=== PATIENT | male | born 1980 | race African-American/Black ===

== ENCOUNTER 2019-05-23 08:24 | Emergency (ER) | payer SELFPAY | END 2019-05-23 09:00 | disposition left against medical advice (07) | LOC: EMS 08:27 | DX: M54.9 Dorsalgia, unspecified (principal); Z53.21 Procedure and treatment not carried out due to patient leaving prior to being seen by health care provider ==

== ENCOUNTER 2021-07-31 10:52 | Emergency (ER) | payer MEDICAID ==
[~2021-07-31] VITALS: Ht 180.3 cm; Wt 81.8 kg
[2021-07-31 11:00] VITALS: BP 141/86
== END 2021-07-31 11:30 | disposition home or self-care (01) ==
LOC: EMS 10:54
DX: R05 Cough (principal); R51.9 Headache, unspecified; F17.210 Nicotine dependence, cigarettes, uncomplicated; Z20.822 Contact with and (suspected) exposure to COVID-19
CPT/HCPCS: 99283; U0003

== ENCOUNTER 2022-06-30 09:59 | Emergency (ER) | payer SELFPAY ==
[~2022-06-30] VITALS: Ht 180.3 cm; Wt 84.0 kg
[2022-06-30 10:40] VITALS: BP 123/77
[2022-06-30 13:37] LABS: BASOPHILS % (AUTO) 0.6 % (0.0-2.0); EOSINOPHILS % (AUTO) 1.6 % (1.0-6.0); HEMATOCRIT 40.7 % (41-53); HEMOGLOBIN 13.5 g/dL (13.5-17.5); LYMPHOCYTES # (AUTO) 1.2 K/uL (1.0-4.8); LYMPHOCYTES % (AUTO) 12.7 % (22.0-44.0); MEAN CORPUSCULAR HEMOGLOBIN 28.4 pg (26.0-34.0); MEAN CORPUSCULAR HGB CONC 33.2 G/dL (31.0-37.0); MEAN CORPUSCULAR VOLUME 86 fL (80-100); MONOCYTES # (AUTO) 0.5 K/uL (0.1-1.0); MONOCYTES % (AUTO) 5.7 % (2.0-9.0); NEUTROPHILS # (AUTO) 7.3 K/uL (1.8-7.7); NEUTROPHILS % (AUTO) 79.4 % (40.0-70.0); PLATELET COUNT (AUTO) 225 K/uL (150-450); RED BLOOD CELL COUNT(AUTO) 4.76 MIL/uL (4.50-5.90)
[2022-06-30 13:46] LABS: ANION GAP 4 mmol/L (8-16); CALCIUM, TOTAL 8.8 mg/dL (8.8-10.5); CARBON DIOXIDE 31 mmol/L (22-29); CHLORIDE 104 mmol/L (98-107); CREATININE 0.83 mg/dL (0.60-1.30); GLOMERULAR FILTR. RATE CALC > 60 mL/min (>60); GLUCOSE,RANDOM 84 mg/dL (70-110); POTASSIUM 3.9 mmol/L (3.5-5.1); SODIUM SERUM 139 mmol/L (136-145); UREA NITROGEN, BLOOD 9 mg/dL (7-18)
[2022-06-30 14:32] LABS: B-TYPE NATRIURETIC PEPTIDE < 5 pg/mL (0-100)
[2022-06-30 14:42] LABS: ALANINE AMINOTRANSFERASE 44 U/L (12-78); ALBUMIN 3.7 g/dL (3.4-5.0); ALKALINE PHOSPHATASE 64 U/L (46-116); ASPARTATE AMINOTRANSFERASE 42 U/L (15-37); BILIRUBIN,TOTAL 0.3 mg/dL (0.1-1.0); CREATINE KINASE, TOTAL ONLY 148 U/L (39-308); TOTAL PROTEIN, SERUM 7.2 g/dL (6.4-8.2)
== END 2022-06-30 14:40 | disposition left against medical advice (07) ==
LOC: EMS 09:59
DX: R07.89 Other chest pain (principal); F17.210 Nicotine dependence, cigarettes, uncomplicated
CPT/HCPCS: 80053; 82550; 83880; 84484; 85025; 99283

== ENCOUNTER 2022-07-22 10:14 | Emergency (ER) | payer SELFPAY ==
[~2022-07-22] VITALS: Ht 180.3 cm; Wt 79.5 kg
[2022-07-22 12:26] LABS: BASOPHILS % (AUTO) 0.8 % (0.0-2.0); EOSINOPHILS % (AUTO) 2.8 % (1.0-6.0); HEMATOCRIT 40.8 % (41-53); HEMOGLOBIN 13.5 g/dL (13.5-17.5); LYMPHOCYTES # (AUTO) 1.3 K/uL (1.0-4.8); LYMPHOCYTES % (AUTO) 20.4 % (22.0-44.0); MEAN CORPUSCULAR HEMOGLOBIN 28.7 pg (26.0-34.0); MEAN CORPUSCULAR HGB CONC 33.1 G/dL (31.0-37.0); MEAN CORPUSCULAR VOLUME 87 fL (80-100); MONOCYTES # (AUTO) 0.4 K/uL (0.1-1.0); MONOCYTES % (AUTO) 6.4 % (2.0-9.0); NEUTROPHILS # (AUTO) 4.3 K/uL (1.8-7.7); NEUTROPHILS % (AUTO) 69.6 % (40.0-70.0); PLATELET COUNT (AUTO) 289 K/uL (150-450); RED BLOOD CELL COUNT(AUTO) 4.72 MIL/uL (4.50-5.90); RED CELL DISTRIBUTION WIDTH 16.3 % (11.5-14.5)
[2022-07-22 12:35] LABS: ANION GAP 8 mmol/L (8-16); CALCIUM, TOTAL 9.1 mg/dL (8.8-10.5); CARBON DIOXIDE 30 mmol/L (22-29); CHLORIDE 106 mmol/L (98-107); GLUCOSE,RANDOM 95 mg/dL (70-110); POTASSIUM 3.7 mmol/L (3.5-5.1); SODIUM SERUM 144 mmol/L (136-145); UREA NITROGEN, BLOOD 11 mg/dL (7-18)
[2022-07-22 12:36] LABS: GLOMERULAR FILTR. RATE CALC > 60 mL/min (>60)
[2022-07-22] MEDS ORDERED: IBUPROFEN 600 MG TABLET PO ONE (14:00)
[2022-07-22] MEDS ORDERED: LIDOCAINE 5% TRANSDERMAL PATCH TD ONE (14:00)
[2022-07-22] MEDS ORDERED: IBUP-2070 PO (14:19)
[2022-07-22 14:51] VITALS: BP 135/70
== END 2022-07-22 14:53 | disposition home or self-care (01) ==
LOC: EMS 10:14
DX: R07.89 Other chest pain (principal); F17.210 Nicotine dependence, cigarettes, uncomplicated
CPT/HCPCS: 71046; 80048; 84484; 85025; 93005; 99285; 36415-L1; 36415-TC

== ENCOUNTER 2023-09-23 12:37 | Emergency (ER) | payer MEDICAID ==
[~2023-09-23] VITALS: Ht 180.3 cm; Wt 81.8 kg
[~2023-09-23 12:37] MED LIST: IBUP-1492 PO
[2023-09-23 13:13] VITALS: TEMP 98.6
[2023-09-23 14:03] LABS: BASOPHILS % (AUTO) 0.6 % (0.0-2.0); HEMATOCRIT 43.6 % (41-53); HEMOGLOBIN 14.4 g/dL (13.5-17.5); LYMPHOCYTES # (AUTO) 1.2 K/uL (1.0-4.8); LYMPHOCYTES % (AUTO) 25.4 % (22.0-44.0); MEAN CORPUSCULAR HEMOGLOBIN 29.8 pg (26.0-34.0); MEAN CORPUSCULAR HGB CONC 33.1 G/dL (31.0-37.0); MEAN CORPUSCULAR VOLUME 90 fL (80-100); MONOCYTES # (AUTO) 0.4 K/uL (0.1-1.0); MONOCYTES % (AUTO) 8.6 % (2.0-9.0); NEUTROPHILS % (AUTO) 62.4 % (40.0-70.0); PLATELET COUNT (AUTO) 218 K/uL (150-450); RED BLOOD CELL COUNT(AUTO) 4.84 MIL/uL (4.50-5.90); RED CELL DISTRIBUTION WIDTH 15.6 % (11.5-14.5); WHITE BLOOD COUNT (AUTO) 4.9 K/uL (4.5-11.0)
[2023-09-23 14:10] LABS: ANION GAP 11 mmol/L (8-16); CARBON DIOXIDE 30 mmol/L (22-29); CHLORIDE 104 mmol/L (98-107); CREATININE 0.88 mg/dL (0.60-1.30); GLOMERULAR FILTR. RATE CALC > 60 mL/min (>60); GLUCOSE,RANDOM 146 mg/dL (70-110); POTASSIUM 3.4 mmol/L (3.5-5.1); SODIUM SERUM 145 mmol/L (136-145); UREA NITROGEN, BLOOD 9 mg/dL (7-18)
[2023-09-23 14:17] LABS: ALANINE AMINOTRANSFERASE 45 U/L (12-78); ALBUMIN 3.8 g/dL (3.4-5.0); ALKALINE PHOSPHATASE 68 U/L (46-116); ASPARTATE AMINOTRANSFERASE 43 U/L (15-37); BILIRUBIN,TOTAL 0.2 mg/dL (0.1-1.0); LIPASE 34 U/L (16-77); TOTAL PROTEIN, SERUM 7.6 g/dL (6.4-8.2)
[2023-09-23 14:21] VITALS: BP 119/78; PULSE 98; RESP 18
[2023-09-23] MEDS ORDERED: ONDANSETRON HCL 4 MG/2 ML VIAL IVP ONE (14:30)
[2023-09-23] MEDS ORDERED: ACETAMINOPHEN 500 MG TABLET PO ONE (14:30)
[2023-09-23] MEDS ORDERED: FAMOTIDINE 20 MG/2 ML VIAL IVP ONE (14:30)
[2023-09-23] MEDS ORDERED: SODIUM CHLORIDE 0.9% 1,000 ML IV ONE (14:30)
[2023-09-23] MEDS ORDERED: KETOROLAC TROMETHAMINE 30 MG/ML VIAL IVP ONE (14:30)
[2023-09-23] MEDS ORDERED: SODIUM CHLORIDE 0.9% 0 ML ONE (16:16)
[2023-09-23] MEDS ORDERED: IOHEXOL 350 MG/ML 100 ML VIAL ONE ×2 (16:16→19:40)
== END 2023-09-23 15:33 | disposition left against medical advice (07) ==
LOC: EMS 12:39
DX: R10.33 Periumbilical pain (principal); R11.2 Nausea with vomiting, unspecified; F17.210 Nicotine dependence, cigarettes, uncomplicated
CPT/HCPCS: 99284; 96374; 96375; 96361; 80053; 83690; 85025; G0480; J3490; J1885; J2405; J7030; J7050; Q9967; 36415-L1; 36415-TC

== ENCOUNTER 2023-12-16 10:39 | Emergency (ER) | payer SELFPAY ==
[~2023-12-16] VITALS: Ht 180.3 cm; Wt 84.1 kg
[2023-12-16 10:47] VITALS: TEMP 98.2
[2023-12-16 13:37] VITALS: BP 139/72; PULSE 73; RESP 18
[2023-12-16] MEDS: KETOROLAC TROMETHAMINE 30 MG/ML VIAL IM ONE (14:23)
[2023-12-16] MEDS: LIDOCAINE 5% TRANSDERMAL PATCH TD ONE (14:23)
== END 2023-12-16 14:31 | disposition home or self-care (01) ==
LOC: EMS 10:42
DX: S39.012A Strain of muscle, fascia and tendon of lower back, initial encounter (principal); F17.210 Nicotine dependence, cigarettes, uncomplicated; X58.XXXA Exposure to other specified factors, initial encounter; Y93.89 Activity, other specified; Y92.89 Other specified places as the place of occurrence of the external cause; Y99.8 Other external cause status
CPT/HCPCS: 99283; 96372; J1885

== ENCOUNTER 2025-09-04 08:17 | Emergency (ER) | payer SELFPAY ==
[~2025-09-04] VITALS: Ht 180.3 cm; Wt 77.3 kg
[2025-09-04 08:36] VITALS: BP 134/94; PULSE 90; RESP 16; TEMP 98.2; O2SAT 98
[2025-09-04] MEDS ORDERED: METH-659 PO (09:22)
[2025-09-04] MEDS ORDERED: LIDO-57 TP (09:22)
[2025-09-04] MEDS ORDERED: PERCT PO (09:22)
[2025-09-04] MEDS ORDERED: IBUP-1492 PO (09:22)
[2025-09-04] MEDS: LIDOCAINE 5% TRANSDERMAL PATCH TD ONE (09:27)
[2025-09-04] MEDS: IBUPROFEN 600 MG TABLET PO ONE (09:27)
== END 2025-09-04 09:42 | disposition home or self-care (01) ==
LOC: EMS 08:22
DX: S39.012A Strain of muscle, fascia and tendon of lower back, initial encounter (principal); F17.210 Nicotine dependence, cigarettes, uncomplicated; F10.90 Alcohol use, unspecified, uncomplicated; Z98.890 Other specified postprocedural states; Z79.891 Long term (current) use of opiate analgesic; X58.XXXA Exposure to other specified factors, initial encounter; Y93.89 Activity, other specified; Y92.89 Other specified places as the place of occurrence of the external cause; Y99.8 Other external cause status
CPT/HCPCS: 99284; Z7502; Z7610

== ENCOUNTER 2025-10-30 07:21 | Emergency (ER) | payer SELFPAY ==
[~2025-10-30] VITALS: Ht 180.3 cm; Wt 79.5 kg
[~2025-10-30 07:21] MED LIST changes: +LIDO-57 TP; +METH-659 PO; +PERCT PO
[2025-10-30 07:24] VITALS: BP 141/86; PULSE 83; RESP 18; TEMP 98.2; O2SAT 99
[2025-10-30] MEDS: KETOROLAC TROMETHAMINE 60 MG/2 ML VIAL IM ONE (08:57)
[2025-10-30] MEDS: LIDOCAINE 5% TRANSDERMAL PATCH TD ONE (08:58)
[2025-10-30] MEDS ORDERED: METH-659 PO (09:35)
[2025-10-30] MEDS ORDERED: IBUP-1492 PO (09:35)
== END 2025-10-30 10:21 | disposition home or self-care (01) ==
LOC: EMS 07:21
DX: S39.012A Strain of muscle, fascia and tendon of lower back, initial encounter (principal); M53.3 Sacrococcygeal disorders, not elsewhere classified; F17.210 Nicotine dependence, cigarettes, uncomplicated; F10.90 Alcohol use, unspecified, uncomplicated; Z98.890 Other specified postprocedural states; Z79.899 Other long term (current) drug therapy; Z79.891 Long term (current) use of opiate analgesic; Y90.9 Presence of alcohol in blood, level not specified; X58.XXXA Exposure to other specified factors, initial encounter; Y93.89 Activity, other specified; Y92.89 Other specified places as the place of occurrence of the external cause; Y99.8 Other external cause status
CPT/HCPCS: 99283; 96372; J1885